=== PATIENT | male | born 1970 | race Two or more races ===

== ENCOUNTER 2022-06-25 15:57 | Emergency (ER) | payer MEDICAID ==
[~2022-06-25] VITALS: Ht 175.3 cm; Wt 82.0 kg
[2022-06-25 16:01] VITALS: BP 151/84
== END 2022-06-25 20:30 | disposition left against medical advice (07) ==
LOC: ER 15:57
DX: Z53.21 Procedure and treatment not carried out due to patient leaving prior to being seen by health care provider (principal)